=== PATIENT | male | born 2000 | race Caucasian/White ===

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

== ENCOUNTER 2022-12-14 23:10 | Emergency (ER) | payer BC, MEDICAID ==
[2022-12-15] MEDS ORDERED: Sodium Chloride 0.9% 500 ML ONE (00:31)
[2022-12-15 00:55] LABS: ALT (SGPT) 11 U/L (8-55); AST (SGOT) 15 U/L (5-34); Albumin 4.1 g/dL (3.5-5.0); Alkaline Phosphatase 99 U/L (50-130); Anion Gap 14 mmol/L (10-20); BUN (Urea Nitrogen) 7 mg/dL (8.9-20.6); Bilirubin, Total 0.8 mg/dL (0.2-1.2); Calc. Creatinine Clearance 0 mL/min (70-130); Calcium 9.6 mg/dL (7.8-10.44); Carbon Dioxide 26 mmol/L (22-29); Chloride 101 mmol/L (98-107); Estimated GFR 135; Globulin 3.6 g/dL (2.4-3.5); Glucose 114 mg/dL (70-105); Potassium 3.3 mmol/L (3.5-5.1); Protein, Total 7.7 g/dL (6.0-8.3); Sodium 138 mmol/L (136-145)
[2022-12-15 01:00] LABS: Hematocrit 43.1 % (42.0-52.0); Hemoglobin 14.4 g/dL (14.0-18.0); MDiff Complete? YES; Mean Corpuscular HGB CONC 33.5 g/dL (32.0-36.0); Mean Corpuscular Hemoglobin 29.9 pg (25.0-35.0); Mean Corpuscular Volume 89.2 fl (78.0-98.0); Mean Platelet Volume 7.5 fL (7.4-10.4); Platelet Count 200 10x3/uL (130-400); Red Blood Cell (RBC) Count 4.83 mill/uL (4.00-5.20); White Blood Cell (WBC) Count 4.9 10x3/uL (4.8-10.8)
[2022-12-15 01:01] LABS: Lymphocytes 29 % (28-48); Monocytes 2 % (0-4); Neutrophil 69 % (31-61); Platelet Adequacy Comment Appears Adequate
[2022-12-15 01:16] LABS: Bilirubin Small (Negative); Blood, Urine Moderate (Negative); Clarity Turbid (Clear); Glucose, Urine (Dipstick) Negative (Negative); Ketone, Urine 40 mg/dL (Negative); Leukocyte Large (Negative); Nitrite Positive (Negative); Protein, Urine (Dipstick) 100 mg/dL (Neg-Trace); Specific Gravity, Urine 1.025 (1.005-1.030)
[2022-12-15] MEDS ORDERED: Potassium Chloride 20 MEQ TAB ONE (01:19)
[2022-12-15 01:21] LABS: Bacteria/HPF 4+ HPF (None Seen); CAUTI Indications for Culture Dysuria,urgency,freq; WBC/HPF Greater than 50 HPF (0-3)
[2022-12-15 01:22] LABS: Urine Culture Reflex Yes Yes
[2022-12-15] MEDS ORDERED: Sodium Chloride 0.9% 100 ML ONE (01:32)
[2022-12-15] MEDS ORDERED: cefTRIAXone (ROCEPHIN) 2 GM VIAL ONE (01:32)
[2022-12-15 01:39] LABS: SARS-CoV-2 NAA Rapid Test Not Detected (NotDetected)
[2022-12-15] MEDS ORDERED: Ondansetron PF 4 MG/2 ML Vial ONE ×2 (02:10→04:03)
[2022-12-15 03:14] LABS: Magnesium 1.7 mg/dL (1.7-2.2)
[2022-12-15] MEDS ORDERED: Sodium Chloride 0.9% 1,000 ML ONE (04:03)
== END 2022-12-15 05:48 | disposition short-term general hospital (02) ==
LOC: MADERS 23:10
DX: N10 Acute pyelonephritis (principal); N20.0 Calculus of kidney; Z20.822 Contact with and (suspected) exposure to COVID-19
CPT/HCPCS: 71045; 74177; 80053; 81001; 83605; 83735; 85025; 87040; 87077; 87086; 87149; 87186; 93005; 96365; 96375; 96376; J0696; J2405; J7030; J7050; U0002

== ENCOUNTER 2023-03-21 19:00 | Emergency (ER) | payer BC, OTHER ==
[2023-03-21 20:00] LABS: #Basophils 0.1 thou/uL (0.0-0.2); #Lymphocytes 0.6 thou/uL (1.20-3.40); #Monocytes 0.4 thou/uL (0.11-0.59); #Neutrophils 3.8 thou/uL (1.40-6.50); %Basophils 1.7 % (0.0-1.0); %Eosinophils 0.8 % (0.0-10.0); %Monocytes 7.3 % (0.0-10.0); %Neutrophils 78.2 % (42.0-75.0); Hematocrit 41.6 % (42.0-52.0); Hemoglobin 14.3 g/dL (14.0-18.0); Mean Corpuscular HGB CONC 34.3 g/dL (32.0-36.0); Mean Corpuscular Hemoglobin 31.7 pg (27.0-31.0); Mean Corpuscular Volume 92.3 fl (78.0-98.0); Mean Platelet Volume 7.7 fL (7.4-10.4); Platelet Count 229 10x3/uL (130-400); RBC Distribution Width 13.5 % (11.5-14.5); Red Blood Cell (RBC) Count 4.51 mill/uL (4.70-6.10); White Blood Cell (WBC) Count 4.9 10x3/uL (4.8-10.8)
[2023-03-21 20:02] LABS: Bilirubin Negative (Negative); Blood, Urine Moderate (Negative); Clarity Turbid (Clear); Glucose, Urine (Dipstick) Negative (Negative); Ketone, Urine Negative (Negative); Leukocyte Moderate (Negative); Nitrite Positive (Negative); Protein, Urine (Dipstick) 100 mg/dL (Neg-Trace); Specific Gravity, Urine 1.025 (1.005-1.030); Urobilinogen 0.2 mg/dL (Less than 2)
[2023-03-21 20:05] LABS: Bacteria/HPF 3+ HPF (None Seen); CAUTI Indications for Culture Fever or rigors; RBC/HPF Greater than 50 HPF (0-3); WBC/HPF Greater than 50 HPF (0-3)
[2023-03-21 20:06] LABS: Urine Culture Reflex Yes Yes
[2023-03-21 20:07] LABS: INR-International Normal Ratio 1.1; Prothrombin Time 14.5 sec (12.0-14.7)
[2023-03-21 20:15] LABS: ALT (SGPT) 26 U/L (8-55); AST (SGOT) 17 U/L (5-34); Albumin 4.1 g/dL (3.5-5.0); Alkaline Phosphatase 128 U/L (40-110); Anion Gap 13 mmol/L (10-20); BUN (Urea Nitrogen) 10 mg/dL (8.9-20.6); Bilirubin, Total 0.9 mg/dL (0.2-1.2); Calc. Creatinine Clearance 0 mL/min (70-130); Calcium 9.4 mg/dL (7.8-10.44); Carbon Dioxide 22 mmol/L (22-29); Chloride 104 mmol/L (98-107); Estimated GFR 137; Globulin 3.8 g/dL (2.4-3.5); Glucose 165 mg/dL (70-105); Potassium 3.5 mmol/L (3.5-5.1); Protein, Total 7.9 g/dL (6.0-8.3); Sodium 135 mmol/L (136-145)
[2023-03-21] MEDS ORDERED: Lactated Ringer's 1,000 ML ONE (20:27)
[2023-03-21] MEDS ORDERED: Sodium Chloride 0.9% 100 ML ONE (20:55)
[2023-03-21] MEDS ORDERED: Meropenem 1 GM VIAL ONE (20:55)
== END 2023-03-22 00:20 | disposition home or self-care (01) ==
LOC: MADERS 19:00
DX: R82.71 Bacteriuria (principal)
CPT/HCPCS: 80053; 81001; 83605; 85025; 85610; 85730; 87040; 87077; 87086; 87186; 94760; 96365; 96366; J2185; J7120